=== PATIENT | male | born 1960 | race Caucasian/White ===

== ENCOUNTER 2016-06-15 10:01 | Emergency (ER) | payer OTHER ==
[~2016-06-15] VITALS: Ht 188 cm; Wt 115.5 kg
[2016-06-15 10:24] VITALS: Ht 188 cm; Wt 115.5 kg
--- NOTE | 2016-06-15 13:14 | ERD ---
ER Documentation Chief Complaint Date/Time DATE: 06/15/16 TIME: 13:04 Chief Complaint coughing x 1 day; cwp from coughing, chills; bodyaches HPI This is a 56-year-old male who presents to the ED with cough, dizziness, headache, bilateral chest wall pain and dysuria for 1 day. Chest pain only when he coughs. Patient states he has been coughing up major and black phlegm for the past day. The dizziness has been constant and he denies feeling like the room is spinning. Denies change in vision. Patient also has a anterior headache, nonradiating, that is 9 out of 10 pain. Patient has not taken any medications for his symptoms. Patient also states having dysuria and polyuria for 1 day. He had only one sexual partner in the last 12 month, and has been with this person for 4 years. Denies fever but has chills. Patient was a previous tobacco smoke history, but quit 30 years ago. Patient states he smoked 1-1/2 packs a day for approximately 8 years. Denies abdominal pain, diarrhea, constipation, nausea and vomiting. ROS All systems reviewed and are negative except as per history of present illness. Medications Home Meds Active Scripts Guaifenesin-Codeine Phosphate* (Guaifenesin* AC Cough Syrup) 473 Ml Liquid, 10 ML PO Q4H Y for COUGH, #120 ML Prov:ALTON LEVI. CLIENT STRATEGIST 06/15/16 Sodium Chloride (Saline Nasal Mist) 126 Ml Mist, 2 SPRAY NASAL Q2H Y for NASAL CONGESTION, #1 BOTTLE Prov:ALTON LEVI. CLIENT STRATEGIST 06/15/16 Oseltamivir Phosphate* (Tamiflu*) 75 Mg Capsule, 75 MG PO BID for 5 Days, CAP Prov:ALTON LEVI. CLIENT STRATEGIST 06/15/16 Acetaminophen* (Tylophen*) 500 Mg Capsule, 1 CAP PO Q6H Y for PAIN AND OR ELEVATED TEMP, #20 CAP Prov:ALTON LEVI. CLIENT STRATEGIST 06/15/16 PMhx/Soc History of uncontrolled hypertension and acid reflux Medical and Surgical Hx: pt denies Surgical Hx Hx Cardiac Disorders: Yes (htn) Hx Alcohol Use: No Hx Substance Use: No Smoking Status: Former smoker FmHx Family History: diabetes Physical Exam Vitals Vital Signs Date Time Temp Pulse Resp B/P Pulse Ox O2 Delivery O2 Flow Rate FiO2 06/15/16 10:24 98.2 107 20 142/87 99 Physical Exam General impression: Well-developed, well-nourished. Alert, oriented, in no acute distress Head: Normocephalic, atraumatic. Eyes: PERRL, EOM normal. Conjunctiva mildly injected. ENT: External canals clear. TM's pearly oliva. Nasal mucosa, oral mucosa and oropharynx are normal. Neck: Supple, nontender. No lymphadenopathy. No nuchal rigidity. Respiration: Normal respiratory effort. Lungs clear to auscultate bilaterally. No wheezes, rales or rhonchi. Cardiovascular: Regular rate and rhythm. No murmurs or extra heart sounds. No pain upon palpation to right and left chest wall. Abdomen: Abdomen normal to inspection. Nontender. No masses or organomegaly. Bowel sounds normal. Back: Normal to inspection. No midline spine tenderness. Bilateral CVA tenderness. Extremities: Extremities normal to inspection, nontender. ROM normal. Neuro: Mental status normal, speech normal. COMMUNICATIONS ELECTRICIAN SUPERVISOR grossly intact. Skin: Normal turgor. No rash or lesions. Psych: Normal mood and affect. Result Diagram: 06/15/16 1315 06/15/16 1315 Results 24 hrs Laboratory Tests Test 06/15/16 13:15 Alanine Aminotransferase (ALT/SGPT) 50IU/L Albumin 4.1g/dl Albumin/Globulin Ratio 1.46 Alkaline Phosphatase 121IU/L Anion Gap 17 Aspartate Amino Transf (AST/SGOT) 34IU/L Basophils # 0.010^3/ul Basophils % 0.2% Blood Urea Nitrogen 15mg/dl Calcium Level 9.4mg/dl Carbon Dioxide Level 28mmol/L Chloride Level 101mmol/L Creatinine 1.44mg/dl Direct Bilirubin 0.00mg/dl Eosinophils # 0.110^3/ul Eosinophils % 1.5% Globulin 2.80g/dl Glucose Level 90mg/dl Hematocrit 41.9% Hemoglobin 14.3g/dl Indirect Bilirubin 0.3mg/dl Lymphocytes # 0.510^3/ul Lymphocytes % 9.1% Mean Corpuscular Hemoglobin 30.7pg Mean Corpuscular Hemoglobin Concent 34.1g/dl Mean Corpuscular Volume 89.9fl Mean Platelet Volume 10.6fl Monocytes # 0.810^3/ul Monocytes % 13.1% Neutrophils # 4.410^3/ul Neutrophils % 75.2% Nucleated Red Blood Cells # 0.010^3/ul Nucleated Red Blood Cells % 0.0/100WBC Platelet Count 11647^3/UL Potassium Level 4.3mmol/L Red Blood Count 4.6610^6/ul Red Cell Distribution Width 13.0% Sodium Level 142mmol/L Total Bilirubin 0.3mg/dl Total Protein 6.9g/dl Troponin I < 0.012ng/ml Urine Bilirubin NEGATIVE Urine Clarity CLEAR Urine Color LT. YELLOW Urine Glucose NEGATIVE% Urine Hemoglobin NEGATIVE Urine Ketones NEGATIVE Urine Leukocyte Esterase NEGATIVE Urine Nitrite NEGATIVE Urine Specific [place] 1.015 Urine Total Protein NEGATIVE Urine Urobilinogen 0.2 E.U./dL Urine pH 6.0 White Blood Count 5.810^3/ul PROCEDURE: XR Chest. CLINICAL INDICATION: Cough TECHNIQUE: Chest PA and lateral COMPARISON: None available FINDINGS: The mediastinal structures are unremarkable. There is calcification of the thoracic aorta (consistent with atherosclerosis). The heart is normal in size and configuration. The pulmonary vascularity is normal. The lung perdomo are unremarkable. No consolidation is identified. The pleural spaces are unremarkable. There are senescent changes of the axial skeleton. IMPRESSION: Calcification of the thoracic aorta (consistent with atherosclerosis). No evidence for active cardiopulmonary disease. RPTAT: HGDB .Ash Plaza MD, Date Time Electronically viewed and signed by .Ash Plaza MD, on 06/15/2016 14:15 .B/ CC: ALTON LEVI CLIENT STRATEGIST Procedures/MDM EKG: Normal sinus rhythm, normal axis. No ST segment elevation or depression. No ectopic beats. No QT prolongation. No other EKG abnormalities. EKG read by Dr. Burgess. Chest x-ray is negative. CBC, CMP, and UA are all unremarkable. No sign of urinary tract infection. Although I think the likelihood of STI is low, urine sent off for GC chlamydia testing. His cough and body ache is likely from a viral illness, I suspect flu. Since patient's symptom onset is less than 48 hours, I will prescribe Tamiflu for him. Patient appears well, stable for discharge and outpatient management. Medical decision making shared with patient and family. Education provided to patient and family. Patient and family expressed understanding of the plan. Medications on discharge: Tamiflu, Tylenol, saline nasal spray, guaifenesin with codeine. Follow-up: Primary care provider in 2-3 days or return to ED if worse. ALTON LEVI NP Jun 15, 2016 13:13
[2016-06-15 13:28] LABS: ADD SCAN DIFF NO
[2016-06-15 13:30] LABS: ABNORMAL IP MESSAGE 1; BASOPHILS % 0.2 % (0.0-2.0); EOSINOPHILS # 0.1 10^3/ul (0.0-0.5); EOSINOPHILS % 1.5 % (0.0-7.0); HEMATOCRIT 41.9 % (42.0-52.0); HEMOGLOBIN 14.3 g/dl (14.0-18.0); LYMPHOCYTES # 0.5 10^3/ul (0.8-2.9); LYMPHOCYTES % 9.1 % (15.0-51.0); MEAN CORPUSCULAR HEMOGLOBIN 30.7 pg (29.0-33.0); MEAN CORPUSCULAR HGB CONC 34.1 g/dl (32.0-37.0); MEAN CORPUSCULAR VOLUME 89.9 fl (82.0-101.0); MEAN PLATELET VOLUME 10.6 fl (7.4-10.4); MONOCYTE # 0.8 10^3/ul (0.3-0.9); MONOCYTES % 13.1 % (0.0-11.0); NEUTROPHIL # 4.4 10^3/ul (1.6-7.5); NEUTROPHILS % 75.2 % (39.0-77.0); PLATELET COUNT 201 10^3/UL (140-415); RED BLOOD COUNT 4.66 10^6/ul (4.70-6.10); WHITE BLOOD COUNT 5.8 10^3/ul (4.8-10.8)
[2016-06-15 13:38] LABS: ADD UMIC NO; URINE BILIRUBIN (Dip) NEGATIVE (NEGATIVE); URINE BLOOD (Dip) NEGATIVE (NEGATIVE); URINE COLOR LT. YELLOW (YELLOW); URINE GLUCOSE (Dip) NEGATIVE (NEGATIVE); URINE KETONES (Dip) NEGATIVE (NEGATIVE); URINE LEUKOCYTE ESTERASE (Dip) NEGATIVE (NEGATIVE); URINE NITRITE (Dip) NEGATIVE (NEGATIVE); URINE TOTAL PROTEIN (Dip) NEGATIVE (NEGATIVE); URINE UROBILINOGEN (Dip) 0.2 E.U./dL (0.1-1.0)
[2016-06-15 13:40] LABS: ALBUMIN 4.1 g/dl (3.3-4.9); CHLORIDE 101 mmol/L (97-110); POTASSIUM 4.3 mmol/L (3.5-5.1); SODIUM 142 mmol/L (135-144)
[2016-06-15 13:42] LABS: CREATININE 1.44 mg/dl (0.61-1.24)
[2016-06-15 13:43] LABS: ALANINE AMINOTRANSFERASE 50 IU/L (13-69); ALBUMIN/GLOBULIN RATIO 1.46; ALKALINE PHOSPHATASE 121 IU/L (42-121); ANION GAP 17 (8-16); ASPARTATE AMINO TRANSFERASE 34 IU/L (15-46); BILIRUBIN,INDIRECT 0.3 mg/dl (0-1.1); BILIRUBIN,TOTAL 0.3 mg/dl (0.2-1.3); BLOOD UREA NITROGEN 15 mg/dl (7-20); CALCIUM 9.4 mg/dl (8.4-10.2); CARBON DIOXIDE 28 mmol/L (21-31); GLUCOSE 90 mg/dl (70-220); TOTAL PROTEIN 6.9 g/dl (6.1-8.1)
[2016-06-15 14:11] LABS: TROPONIN-I < 0.012 ng/ml (0.00-0.12)
--- NOTE | 2016-06-15 14:16 | RADRPT ---
PROCEDURE: XR Chest. CLINICAL INDICATION: Cough TECHNIQUE: Chest PA and lateral COMPARISON: None available FINDINGS: The mediastinal structures are unremarkable. There is calcification of the thoracic aorta (consiste nt with atherosclerosis). The heart is normal in size and configuration. The pulmonary vascularity is normal. The lung perdomo are unremarkable. No consolidation is identified. The pleural spaces are unremarkable. There are senescent changes of the axial skeleton. IMPRESSION: Calcification of the thoracic aorta (consistent with atherosclerosis). No evidence for active cardiopulmonary disease. RPTAT: HGDB .Ash Plaza MD, MD Date Time Electronically viewed and signed by .Ash Plaza MD, on 06/15/2016 14:15 .B/
[2016-06-15] MEDS ORDERED: ACET500C5 PO (14:28)
[2016-06-15] MEDS ORDERED: SODI126M NASAL (14:28)
[2016-06-15] MEDS ORDERED: OSLT75C PO (14:28)
[2016-06-15] MEDS ORDERED: GUAI473L22 PO (14:28)
== END 2016-06-15 14:49 | disposition home or self-care (01) ==
LOC: FTE 10:01
DX: R05 Cough (principal); R42 Dizziness and giddiness; R51 Headache; R07.89 Other chest pain; R30.0 Dysuria; R35.8 Other polyuria; I10 Essential (primary) hypertension; Z87.891 Personal history of nicotine dependence
CPT/HCPCS: 36415; 71020; 80053; 81003; 84484; 85025; 87591; 93005; Z7502

== ENCOUNTER 2016-06-17 11:50 | Emergency (ER) | payer OTHER ==
[~2016-06-17] VITALS: Wt 113.6 kg
[~2016-06-17 11:50] MED LIST: ACET500C5 PO; GUAI473L22 PO; OSLT75C PO; SODI126M NASAL
[2016-06-17] MEDS ORDERED: ACETAMINOPHEN 500 MG TAB PO STA (12:37)
[2016-06-17] MEDS ORDERED: LEVALBUTEROL (NEB) 1.25 MG/0.5 ML AMP HHN ONE (13:00)
[2016-06-17] MEDS ORDERED: METHYLPREDNISOLONE 125 MG INJ IV ONE (13:00)
[2016-06-17] MEDS ORDERED: IPRATROPIUM (NEB) 0.5 MG/2.5 ML AMP HHN ONE (13:00)
--- NOTE | 2016-06-17 13:53 | RADRPT ---
PROCEDURE: XR Chest. CLINICAL INDICATION: Cough/chest pain/shortness of breath TECHNIQUE: Chest PA and lateral COMPARISON: 06/15/2016 FINDINGS: The mediastinal structures are unremarkable. There is calcification of the thoracic aorta (consiste nt with atherosclerosis). The heart is normal in size and configuration. The pulmonary vascularity is normal. The lung perdomo are unremarkable. No consolidation is identified. The pleural spaces are unremarkable. There are senescent changes of the axial skeleton. IMPRESSION: Calcification of the thoracic aorta (consistent with atherosclerosis). No evidence for active cardiopulmonary disease. Unchanged since the previous examination RPTAT: HGDB .Ash Plaza MD, MD Date Time Electronically viewed and signed by .Ash Plaza MD, MD on 06/17/2016 13:53 .B/
[2016-06-17] MEDS ORDERED: LORAZEPAM 2 MG INJ IV ONE (14:00)
[2016-06-17 14:01] LABS: ADD SCAN DIFF NO
[2016-06-17 14:04] LABS: BASOPHILS % 0.1 % (0.0-2.0); EOSINOPHILS # 0.1 10^3/ul (0.0-0.5); EOSINOPHILS % 0.7 % (0.0-7.0); HEMATOCRIT 43.4 % (42.0-52.0); HEMOGLOBIN 15.1 g/dl (14.0-18.0); LYMPHOCYTES # 1.7 10^3/ul (0.8-2.9); LYMPHOCYTES % 20.6 % (15.0-51.0); MEAN CORPUSCULAR HEMOGLOBIN 30.8 pg (29.0-33.0); MEAN CORPUSCULAR HGB CONC 34.8 g/dl (32.0-37.0); MEAN CORPUSCULAR VOLUME 88.4 fl (82.0-101.0); MEAN PLATELET VOLUME 10.7 fl (7.4-10.4); MONOCYTE # 0.5 10^3/ul (0.3-0.9); MONOCYTES % 6.6 % (0.0-11.0); NEUTROPHIL # 5.7 10^3/ul (1.6-7.5); PLATELET COUNT 190 10^3/UL (140-415); RED BLOOD COUNT 4.91 10^6/ul (4.70-6.10); RED CELL DISTRIBUTION WIDTH 13.1 % (11.5-14.5); WHITE BLOOD COUNT 8.1 10^3/ul (4.8-10.8)
[2016-06-17 14:15] LABS: ALBUMIN 4.1 g/dl (3.3-4.9); CHLORIDE 100 mmol/L (97-110); SODIUM 143 mmol/L (135-144)
[2016-06-17 14:18] LABS: ALANINE AMINOTRANSFERASE 62 IU/L (13-69); ALKALINE PHOSPHATASE 162 IU/L (42-121); ANION GAP 23 (8-16); ASPARTATE AMINO TRANSFERASE 59 IU/L (15-46); BILIRUBIN,INDIRECT 0.3 mg/dl (0-1.1); BILIRUBIN,TOTAL 0.3 mg/dl (0.2-1.3); BLOOD UREA NITROGEN 14 mg/dl (7-20); CARBON DIOXIDE 23 mmol/L (21-31); CREATININE 1.53 mg/dl (0.61-1.24); GLUCOSE 118 mg/dl (70-220); TOTAL PROTEIN 7.8 g/dl (6.1-8.1)
[2016-06-17 14:30] LABS: TROPONIN-I < 0.012 ng/ml (0.00-0.12)
[2016-06-17] MEDS ORDERED: AZIT250T94 PO (15:14)
[2016-06-17] MEDS ORDERED: D-ME473S18 PO (15:15)
[2016-06-17] MEDS ORDERED: ALBU8.5H3 INH (15:15)
--- NOTE | 2016-06-17 15:22 | ERD ---
ER Documentation Chief Complaint Date/Time DATE: 06/17/16 TIME: 15:19 Chief Complaint FEVER AND COUGH AND CONGESTION FOR 1 WK. MILD SOB. HPI This is a 56-year-old male that presents to the ER with a fever and a cough and chest congestion for the last week. Patient states that he has had fevers and chills. He also has body pain. He states that he feels very short of breath. Patient denies any chest pain at this time. He denies any leg pain, leg swelling or redness. He has not traveled anywhere recently. Patient denies any nausea vomiting or diarrhea. ROS 12 point review of systems was done, all negative except per HPI. Medications Home Meds Active Scripts Albuterol Sulfate* (Proair HFA*) 8.5 Gm Hfa.aer.ad, 2 PUFF INH Q4, #1 INHALER Prov:ZENON MARIN 06/17/16 Dextromethorphan Hb-Promethazine Hcl (Promethazine DM Syrup) 473 Ml Syrup, 10 ML PO Q6H Y for COUGH, #4 OZ Prov:ZENON MARIN 06/17/16 Azithromycin* (Zithromax*) 250 Mg Tablet, 250 MG PO .ZPACK DIRECTED, #6 TAB TAKE 500 MG (2 TABS) THE FIRST DAY THEN 250 MG (1 TAB) DAYS 2-5 Prov:ZENON MARIN 06/17/16 Guaifenesin-Codeine Phosphate* (Guaifenesin* AC Cough Syrup) 473 Ml Liquid, 10 ML PO Q4H Y for COUGH, #120 ML Prov:ALTON LEVI NP 06/15/16 Sodium Chloride (Saline Nasal Mist) 126 Ml Mist, 2 SPRAY NASAL Q2H Y for NASAL CONGESTION, #1 BOTTLE Prov:ALTON LEVI. SQL SSIS DEVELOPER 06/15/16 Oseltamivir Phosphate* (Tamiflu*) 75 Mg Capsule, 75 MG PO BID for 5 Days, CAP Prov:ALTON LEVI SQL SSIS DEVELOPER 06/15/16 Acetaminophen* (Tylophen*) 500 Mg Capsule, 1 CAP PO Q6H Y for PAIN AND OR ELEVATED TEMP, #20 CAP Prov:ALTON LEVI. SQL SSIS DEVELOPER 06/15/16 Allergies Allergies: Coded Allergies: No Known Allergy (Unverified , 06/17/16) PMhx/Soc History of Surgery: Yes (L knee replacement) Anesthesia Reaction: No Hx Neurological Disorder: No Hx Respiratory Disorders: No Hx Cardiac Disorders: Yes (htn) Hx Psychiatric Problems: No Hx Miscellaneous Medical Probl: No Hx Alcohol Use: No Hx Substance Use: No Smoking Status: Never smoker Physical Exam Vitals Vital Signs Date Time Temp Pulse Resp B/P Pulse Ox O2 Delivery O2 Flow Rate FiO2 06/17/16 12:51 82 30 98 21 06/17/16 12:37 Non Rebreather 06/17/16 11:54 97.1 104 22 129/85 98 Physical Exam GENERAL: Patient is very anxious appearing NECK: Cervical spine is non tender with no step off. Supple, no nuchal rigidity HEENT: Atraumatic. Pupils equal, round and reactive to light. Extraocular muscles are grossly intact. Conjunctivae pink, no discharge. Bilateral tympanic membranes are clear with no evidence of erythema, effusion or dulling of the light reflex. Tonsilar erythema with no exudates or uvular deviation. Clear rhinorrhea. RESPIRATORY: Expiratory wheezing in all lung perdomo. No rales rhonchi or crackles. HEART: Regular rate and rhythm. No murmurs, clicks, rubs or gallops. NEUROLOGIC: Alert and oriented. SKIN: The skin is warm and dry. Result Diagram: 06/17/16 1353 06/17/16 1353 Results 24 hrs Laboratory Tests Test 06/17/16 13:53 Alanine Aminotransferase (ALT/SGPT) 62IU/L Albumin 4.1g/dl Albumin/Globulin Ratio 1.10 Alkaline Phosphatase 162IU/L Anion Gap 23 Aspartate Amino Transf (AST/SGOT) 59IU/L Basophils # 0.010^3/ul Basophils % 0.1% Blood Urea Nitrogen 14mg/dl Calcium Level 9.0mg/dl Carbon Dioxide Level 23mmol/L Chloride Level 100mmol/L Creatinine 1.53mg/dl Direct Bilirubin 0.00mg/dl Eosinophils # 0.110^3/ul Eosinophils % 0.7% Globulin 3.70g/dl Glucose Level 118mg/dl Hematocrit 43.4% Hemoglobin 15.1g/dl Indirect Bilirubin 0.3mg/dl Lymphocytes # 1.710^3/ul Lymphocytes % 20.6% Mean Corpuscular Hemoglobin 30.8pg Mean Corpuscular Hemoglobin Concent 34.8g/dl Mean Corpuscular Volume 88.4fl Mean Platelet Volume 10.7fl Monocytes # 0.510^3/ul Monocytes % 6.6% Neutrophils # 5.710^3/ul Neutrophils % 71.0% Nucleated Red Blood Cells # 0.010^3/ul Nucleated Red Blood Cells % 0.0/100WBC Platelet Count 08067^3/UL Potassium Level 3.0mmol/L Red Blood Count 4.9110^6/ul Red Cell Distribution Width 13.1% Sodium Level 143mmol/L Total Bilirubin 0.3mg/dl Total Protein 7.8g/dl Troponin I < 0.012ng/ml White Blood Count 8.110^3/ul Current Medications Medications (Trade) Dose Ordered Sig/María Route PRN Reason Start Time Stop Time Status Last Admin Dose Admin Levalbuterol (Xopenex Neb) 1.25 mg ONCE ONCE HHN 06/17/16 13:00 06/17/16 13:01 DC 06/17/16 12:44 Ipratropium [place] (Atrovent 0.02% (Neb)) 0.5 mg ONCE ONCE HHN 06/17/16 13:00 06/17/16 13:01 DC 06/17/16 12:44 Methylprednisolone Sodium Succinate (Solu-Medrol) 125 mg ONCE ONCE IV 06/17/16 13:00 06/17/16 13:01 DC 06/17/16 13:56 Acetaminophen (Tylenol Tab) 1,000 mg ONCE STAT PO 06/17/16 12:37 06/17/16 12:41 DC 06/17/16 13:55 Lorazepam (Ativan) 1 mg ONCE ONCE IV 06/17/16 14:00 06/17/16 14:01 DC 06/17/16 13:56 Procedures/MDM EKG was read by Dr. Irwin [address] elevation or T-wave inversion. Patient was given a nebulizing treatment here in the ER and upon reexamination wheezing was resolved. Patient had a lot of anxiety and was given lorazepam 1 lorazepam was given patient calmed down and felt much better. Differential diagnosis includes but is not limited to; Viral URI, allergic rhinitis, bronchitis, pertussis,pneumonia. Patient likely has an upper respiratory infection, at this point we will be treating as a bacterial bronchitis as patient now has developed wheezing. He will be sent home with azithromycin and albuterol. Clinical suspicion for pneumonia is low as patient appears well, is not hypoxic or in any respiratory distress. Additionally, patients physical examination is benign. Plan was discussed with patient they understand and agree. Patient needs to follow up with PCP in 1-2 days or return to ER sooner if symptoms worsen. Departure Diagnosis: Primary Impression: Bronchitis Condition: Stable Patient Instructions: Bronchitis With Wheezing (Adult) Additional Instructions: Call your primary care doctor TOMORROW for an appointment during the next 1-2 days.See the doctor sooner or return here if your condition worsens before your appointment time. ZENON MARIN Jun 17, 2016 15:22
== END 2016-06-17 15:27 | disposition home or self-care (01) ==
LOC: FTE 11:50
DX: J20.9 Acute bronchitis, unspecified (principal); I10 Essential (primary) hypertension; Z96.652 Presence of left artificial knee joint
CPT/HCPCS: 71020; 80053; 84484; 85025; 87400; 94664; 96374; 96375; J2060; J2930; Z7502; Z7610